=== PATIENT | female | born 1950 ===

== ENCOUNTER 2024-04-10 08:25 | Outpatient (RCR) | payer MEDICARE, OTHER, BC, SELFPAY | END 2024-05-08 23:59 | disposition home or self-care (01) | LOC: CR 08:25 | PROVIDERS: Family Provider Family Medicine; PCP Family Medicine; Visit Provider Student in an Organized Health Care Education/Training Program | DX: Z95.5 Presence of coronary angioplasty implant and graft (principal) | CPT/HCPCS: 93798 ==

== ENCOUNTER 2024-04-23 12:46 | Emergency (ER) | payer MEDICARE, SELFPAY ==
[2024-04-23 12:54] VITALS: BP 221/102; PULSE 74; RESP 18; TEMP 36.6; O2SAT 97; BMI 29.7
--- NOTE | 2024-04-23 16:50 | ECG_ITS ---
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 Measurements Intervals [place] Rate: 78 P: 47 RI: 190 QRS: 19 QRSD: 78 T: 31 QT: 351 QTc: 401 Interpretive Statements SINUS RHYTHM WITH FREQUENT VENTRICULAR PREMATURE COMPLEXES POSSIBLE LEFT ATRIAL ENLARGEMENT [-0.1mV P-WAVE IN V1/V2] LOW QRS VOLTAGE IN PRECORDIAL LEADS [QRS DEFLECTION < 1.0 mV IN CHEST LEADS] ANTEROSEPTAL MYOCARDIAL INFARCTION , OF INDETERMINATE AGE [40+ ms Q WAVE IN V1-V4] No previous ECG available for comparison Electronically Signed On 04-23-2024 19:29:54 [employer] by Roma Jaeger M.D. [email or web address]
--- NOTE | 2024-04-24 16:25 | PC.NURSE ---
Called the pt after LWBS yesterday 04/23/24. 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 They instructed her to take it last night and within the hour her bp was down and she has felt good since then.
== END 2024-04-23 13:00 | disposition left against medical advice (07) ==
PROVIDERS: Emergency Provider Family Medicine; PCP Family Medicine
DX: Z53.21 Procedure and treatment not carried out due to patient leaving prior to being seen by health care provider (principal)
CPT/HCPCS: 93005

== ENCOUNTER 2024-05-09 08:15 | Outpatient (RCR) | payer MEDICARE, OTHER, SELFPAY | END 2024-06-08 23:59 | disposition home or self-care (01) | LOC: CR 08:15 | PROVIDERS: PCP Family Medicine; Visit Provider Student in an Organized Health Care Education/Training Program | DX: Z95.5 Presence of coronary angioplasty implant and graft (principal) | CPT/HCPCS: 93798 ==

== ENCOUNTER 2024-05-25 15:00 | Emergency (ER) | payer MEDICARE, OTHER, SELFPAY ==
[2024-05-25 15:07] VITALS: BP 171/83; PULSE 77; RESP 17; TEMP 36.6; O2SAT 99; BMI 29.0
--- NOTE | 2024-05-25 16:13 | CTR_ITS ---
PROCEDURE INFORMATION: Exam: CT Head Without Contrast Exam date and time: 05/25/2024 5:46 PM Age: 74 years old Clinical indication: Injury or trauma; Fall; Blunt trauma (contusions or hematomas); Additional info: Fall, head injury TECHNIQUE: Imaging protocol: Computed tomography of the head without contrast. Radiation optimization: All CT scans at this facility use at least one of these dose optimization techniques: automated exposure control; mA and/or kV adjustment per patient size (includes targeted exams where dose is matched to clinical indication); or iterative reconstruction. COMPARISON: CT facial bones wo con* [id number] 05/25/2024 5:46 PM RADIATION DOSE METRICS: Total DLP (mGy-cm): 1170.5 FINDINGS: Brain: No hemorrhage. No edema. Moderate diffuse cerebral atrophy. Old lacunar infarcts noted in the left basal ganglia. No mass effect. Cerebral ventricles: No ventriculomegaly. Paranasal sinuses: Partially fluid-filled right maxillary sinus. Mastoid air cells: Visualized mastoid air cells are well aerated. Bones: Unremarkable. No acute fracture. Soft tissues: Right periorbital contusion. CT/CT head wo con* [id number] IMPRESSION: No acute intracranial abnormality.
--- NOTE | 2024-05-25 16:13 | CTR_ITS ---
PROCEDURE INFORMATION: Exam: CT Maxillofacial Without Contrast Exam date and time: 05/25/2024 5:46 PM Age: 74 years old Clinical indication: Injury or trauma; Fall; Blunt trauma (contusions or hematomas); Head/scalp and orbit/periorbital; Without loss of consciousness; Right; Additional info: Trauamatic facial pain TECHNIQUE: Imaging protocol: Computed tomography of the face without contrast. Radiation optimization: All CT scans at this facility use at least one of these dose optimization techniques: automated exposure control; mA and/or kV adjustment per patient size (includes targeted exams where dose is matched to clinical indication); or iterative reconstruction. COMPARISON: CT head wo con* [id number] 05/25/2024 5:46 PM RADIATION DOSE METRICS: Total DLP (mGy-cm): 611.6 FINDINGS: Paranasal sinuses: Hemorrhage noted in the right maxillary sinus. Orbital cavities: Inferior right orbital wall fracture. Globes are unremarkable. Bones: Please see orbital cavities section. No additional maxillofacial fractures. Soft tissues: Right periorbital/cheek contusion. CT/CT facial bones wo con* [id number] IMPRESSION: Inferior right orbital wall fracture.
--- NOTE | 2024-05-25 16:13 | CTR_ITS ---
PROCEDURE INFORMATION: Exam: CT Cervical Spine Without Contrast Exam date and time: 05/25/2024 5:46 PM Age: 74 years old Clinical indication: Injury or trauma; Fall; Blunt trauma TECHNIQUE: Imaging protocol: Computed tomography of the cervical spine without contrast. Radiation optimization: All CT scans at this facility use at least one of these dose optimization techniques: automated exposure control; mA and/or kV adjustment per patient size (includes targeted exams where dose is matched to clinical indication); or iterative reconstruction. COMPARISON: CT facial bones wo con* [id number] 05/25/2024 5:46 PM RADIATION DOSE METRICS: Total DLP (mGy-cm): 232.8 FINDINGS: Bones: No acute fracture. Normal alignment. No significant disc bulge or herniation. No severe spinal canal stenosis. Lungs: Lung apices are normal. Soft tissues: Unremarkable. CT/CT cervical spin wo con* [id number] IMPRESSION: No acute findings.
[2024-05-25 20:18] VITALS: BP 171/89; PULSE 76; RESP 16; O2SAT 99
--- NOTE | 2024-05-25 20:24 | XRR_ITS ---
PROCEDURE INFORMATION: Exam: XR Chest Exam date and time: 05/25/2024 8:24 PM Age: 74 years old Clinical indication: Injury or trauma; Fall; Other: Chest pain; Prior surgery; Surgery date: 1-6 months; Surgery type: Cabg; Additional info: Traumatic chest pain TECHNIQUE: Imaging protocol: Radiologic exam of the chest. Views: 1 view. COMPARISON: CT cervical spin wo con* [id number] 05/25/2024 5:46 PM FINDINGS: Lungs: Linear scarring in the left lung base. No consolidation. Pleural spaces: Unremarkable. No pleural effusion. No pneumothorax. Heart/Mediastinum: Sequela of prior CABG. No cardiomegaly. Bones/joints: Sternotomy wires and plates noted. Visualized osseous structures are intact. XR/XR chest 1V portable [id number] IMPRESSION: No acute findings.
--- NOTE | 2024-05-25 20:37 | W.ED.HEATRA ---
HPI - Head Injury General: Chief complaint: Head Injury Stated complaint: fall hit face on concrete Time Seen by Provider: 05/25/24 20:17 History of Present Illness: This is a 74-year-old female who had recent CABG and is on blood thinners who presents emergency room after a fall. She tripped and fell outside. She hit her right face and has a laceration above her eye and considerable swelling around the eye. No pain with movement of the eye. No vision changes. She is having some mild pain in her chest wall. No other injuries at this time. Bleeding is controlled. Related Data Previous Rx's Medication Instructions Recorded cephalexin 500 mg tablet 500 mg PO TID 7 days #21 tabs 05/25/24 Allergies Allergy/AdvReac Type Severity Reaction Status Date / Time codeine Allergy Unknown Verified 04/23/24 12:58 Review of Systems Narrative: Constitutional symptoms: Negative except as documented in HPI. Skin symptoms: Negative except as documented in HPI. Eye symptoms: Negative except as documented in HPI. ENMT symptoms: Negative except as documented in HPI. Respiratory symptoms: Negative except as documented in HPI. Cardiovascular symptoms: Negative except as documented in HPI. Gastrointestinal symptoms: Negative except as documented in HPI. Genitourinary symptoms: Negative except as documented in HPI. Musculoskeletal symptoms: Negative except as documented in HPI. Neurologic symptoms: Negative except as documented in HPI. Psychiatric symptoms: Negative except as documented in HPI. Endocrine symptoms: Negative except as documented in HPI. Physical Exam Narrative: EXAM NARRATIVE: General: Alert, no acute distress. Skin: Warm, dry. Head: Normocephalic, a large amount of bruising around the right eye. There is a laceration just above the right lateral eyebrow. Neck: Supple, trachea midline. Eye: Extraocular movements are intact. Ears, nose, mouth and throat: mucosa moist. Cardiovascular: Regular, Normal peripheral perfusion. Respiratory: Lungs are clear to auscultation, respirations are non-labored, breath sounds are equal, Symmetrical chest wall expansion. Gastrointestinal: Soft, Nontender, Non distended Musculoskeletal: Normal ROM, no deformity. Neurological: Alert and oriented, No focal neurological deficit observed. Psychiatric: Cooperative, appropriate mood & affect. Course Vital Signs: Vital signs: Vital Signs Temperature 97.9 F 05/25/24 15:07 Pulse Rate 76 05/25/24 20:18 Respiratory Rate 16 05/25/24 20:18 Blood Pressure 171/89 05/25/24 20:18 Pulse Oximetry 99 05/25/24 20:18 Oxygen Delivery Me thod Room Air 05/25/24 20:18 MDM - Head Injury Medcial Decision Making CT head: No acute intracranial process. no intracranial hemorrhage, no evidence of infarct. no evidence of acute fracture.This was reviewed and interpreted by myself the ER physician. CT of the facial bones: Inferior orbital wall fracture. Soft tissue swelling. CT of the cervical spine: No fracture. Good alignment. No step-offs. This was reviewed and interpreted by myself the emergency room physician. I also reviewed the radiologist report. Chest x-ray: No acute process. No infiltrate. No pneumothorax. This was reviewed and interpreted by myself the emergency room physician. I also reviewed the radiology report. Sternotomy wires in place. Laceration repair procedure: Time: 2030 Confirmed patient, procedure, side, and site. Time out performed prior to procedure. Verbal consent was obtained by patient and/or responsible constitution party. Indication: Laceration Location: Right lateral forehead just above the eyebrow Length: 1.5 cm Description: Linear subcutaneous bleeding controlled Anesthesia: 3 mL 1% lidocaine with epinephrine Area prepared by sterile field with Betadine. # 4, 4-0 sutures were utilized, simple, interrupted technique. Post procedure examination: Circulation, motor, sensory intact. Patient tolerated the procedure well. No complications, bleeding. Total time: 15 min. Pt advised to keep the area clean and dry, wash twice per day with antibacterial soap and water. Return to the ED or PCP in 7-10 days for suture removal. Patient will follow with ophthalmology early next week. Assessment and plan: Inferior orbital floor fracture Fall Facial injury Facial laceration Head injury ? Laceration repair. Tetanus updated. - Discharged home - Discussed plan with patient. Answered any questions. - Evaluation and treatment of this problem were appropriate in the emergency setting. Lab Data Radiology Impressions Cervical Spine CT 05/25/24 16:13 IMPRESSION: No acute findings. Face CT 05/25/24 16:13 IMPRESSION: Inferior right orbital wall fracture. Head CT 05/25/24 16:13 IMPRESSION: No acute intracranial abnormality. Chest X-Ray 05/25/24 20:24 IMPRESSION: No acute findings. All radiology interpretation(s) finalized by discharge Discharge Plan Discharge Patient Disposition: Home Clinical Impression: Head injury, Fracture of inferior orbital wall, Facial laceration, Fall Condition: Stable Prescriptions: New cephalexin 500 mg tablet 500 mg PO TID 7 Days Qty: 21 0RF Discharge Orders: Discharge ED (Routine); Ordered 05/25/24 Ordered By: Camelia Crawford Referrals: Arlyn Pandya DO [Primary Care Provider] - Discharge Diet: Usual diet Discharge Activity: Increase activity as tolerated Patient Instructions: Opioid Safety, Pain Management Activity Restrictions/Additional Instructions: Keep the area clean and dry, wash twice per day with antibacterial soap and water. Return to your primary provider or the emergency room in 7 days for suture removal. Avoid any prolonged submersion in water. Avoid all monique water, pond water, streams or other untreated water. Thank you for choosing [facility] for your healthcare needs today. Please realize this is an emergency room and that we are providing you with a medical screening exam and this may not be complete and all inclusive of all the testing and or work up that you may need to determine your ailment or severity of your illness. You have been screened and evaluated and felt safe for discharge. Health conditions do change or evolve sometimes and as such it is important that you follow up with your Primary Doctor to be re checked, 3-5 days is a general good time frame for follow up. You are always welcome to return to the ED for re assessment if your symptoms are worsening or you have new concerns Coding Level of Care Code ED Safety Attendant for Shelby Cuevas
[2024-05-25] MEDS: tetanus-dipt-pertussis 0.5 mL SDV IM (20:41)
[2024-05-25] MEDS: lidocaine-epi 1% 20 mL INJ INJECTION (20:47)
[2024-05-25] MEDS: lidocaine 2% INJ 20 mL 10 ML INJECTION (20:48)
== END 2024-05-25 21:21 | disposition home or self-care (01) ==
PROVIDERS: Emergency Provider Emergency Medicine; PCP Family Medicine
DX: S01.81XA Laceration without foreign body of other part of head, initial encounter (principal); S02.31XA Fracture of orbital floor, right side, initial encounter for closed fracture; W19.XXXA Unspecified fall, initial encounter
CPT/HCPCS: 70450; 70486; 71045; 72125; 90471; 90715; 99284

== ENCOUNTER 2024-06-13 14:41 | Outpatient (RCR) | payer MEDICARE, OTHER, SELFPAY | END 2024-07-06 23:59 | disposition home or self-care (01) | LOC: CR 14:41 | PROVIDERS: PCP Family Medicine; Visit Provider Student in an Organized Health Care Education/Training Program | DX: Z95.5 Presence of coronary angioplasty implant and graft (principal) | CPT/HCPCS: 93798 ==

== ENCOUNTER 2024-07-07 13:31 | Outpatient (RCR) | payer MEDICARE, OTHER, SELFPAY | END 2024-08-06 23:59 | disposition home or self-care (01) | LOC: CR 13:31 | PROVIDERS: PCP Family Medicine; Visit Provider Student in an Organized Health Care Education/Training Program | DX: Z95.1 Presence of aortocoronary bypass graft (principal) | CPT/HCPCS: 93798 ==

== ENCOUNTER 2024-08-07 12:23 | Outpatient (RCR) | payer MEDICARE, OTHER, SELFPAY | END 2024-09-05 23:59 | disposition home or self-care (01) | LOC: CR 12:23 | PROVIDERS: PCP Family Medicine; Visit Provider Student in an Organized Health Care Education/Training Program | DX: Z95.1 Presence of aortocoronary bypass graft (principal) | CPT/HCPCS: 93798 ==

== ENCOUNTER 2025-02-06 10:56 | Outpatient (RCR) | payer MEDICARE, OTHER, SELFPAY | END 2025-03-08 23:59 | disposition home or self-care (01) | LOC: CR 10:56 | PROVIDERS: PCP Family Medicine; Referring Provider Student in an Organized Health Care Education/Training Program; Visit Provider Student in an Organized Health Care Education/Training Program | DX: Z95.5 Presence of coronary angioplasty implant and graft (principal) | CPT/HCPCS: 93798 ==

== ENCOUNTER 2025-03-11 10:21 | Outpatient (RCR) | payer MEDICARE, OTHER, SELFPAY | END 2025-04-07 23:59 | disposition home or self-care (01) | LOC: CR 10:21 | PROVIDERS: PCP Family Medicine; Referring Provider Student in an Organized Health Care Education/Training Program; Visit Provider Student in an Organized Health Care Education/Training Program | DX: Z95.5 Presence of coronary angioplasty implant and graft (principal) | CPT/HCPCS: 93798 ==

== ENCOUNTER 2025-04-08 14:13 | Outpatient (RCR) | payer MEDICARE, OTHER, SELFPAY | END 2025-05-08 23:59 | disposition home or self-care (01) | LOC: CR 14:13 | PROVIDERS: PCP Family Medicine; Referring Provider Student in an Organized Health Care Education/Training Program; Visit Provider Student in an Organized Health Care Education/Training Program | DX: Z95.5 Presence of coronary angioplasty implant and graft (principal) | CPT/HCPCS: 93798 ==